=== PATIENT | female | born 1980 | race Caucasian/White ===

== ENCOUNTER 2024-08-21 13:01 | Emergency (ER) | payer OTHER ==
[2024-08-21] MEDS: ONDANSETRON ODT 4 MG TAB PO STA (13:48)
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
--- NOTE | 2024-08-21 14:31 | CT ---
EXAMINATION TYPE: CT brain wo con DATE OF EXAM: 08/21/2024 COMPARISON: None CLINICAL INDICATION: Female, 44 years old with history of head injury with severe headache; PHH, Head injury with severe headache, No LOC. No thinners. CT DLP: 1141.4 mGycm Automated exposure control for dose reduction was used. Findings: The ventricles, basal cisterns and sulci over the convexities are within normal limits and there is n o mass effect or shift of midline structures. No abnormal density is seen throughout the brain parenchyma and there is no acute intra or extra-axia l hemorrhage. The posterior fossa including the brainstem, fourth ventricle and cerebellar pontine angles appear no rmal. Intraorbital contents appear normal and symmetric. Visualized paranasal sinuses and mastoid air cells are well aerated. The calvarium is intact. IMPRESSION: No significant abnormality seen. There is no acute bleed or mass effect. [facility], , 08/21/2024 2:28 PM
[2024-08-21 15:01] VITALS: RESP 20
[2024-08-21 15:53] VITALS: BP 112/80; PULSE 68; TEMP 98.1
== END 2024-08-21 15:53 | disposition home or self-care (01) ==
LOC: EC 13:01
DX: S00.03XA Contusion of scalp, initial encounter (principal); Z88.8 Allergy status to other drugs, medicaments and biological substances; Z88.6 Allergy status to analgesic agent; Z88.5 Allergy status to narcotic agent; W22.8XXA Striking against or struck by other objects, initial encounter; Y99.0 Civilian activity done for income or pay
CPT/HCPCS: 70450; 99283